=== PATIENT | male | born 1990 ===

== ENCOUNTER 2018-07-09 08:03 | Emergency (ER) | payer SELFPAY ==
[2018-07-09] MEDS ORDERED: Lidocaine 2% Inj (20ml) INFIL STA (08:29)
[2018-07-09] MEDS ORDERED: Lidocaine 2% MPF (5 ml) Inj ONE (08:32)
--- NOTE | 2018-07-09 09:08 | C.PDOC ---
History Of Present Illness 27-year-old male, presents to the emergency department with complaints of an abscess to the right buttock x4 months. Patient states he is visiting from [place] and is planning to return in a few days. He denies fever, nausea/vomiting. No other complaints at this time. Chief Complaint (Nursing): Abnormal Skin Integrity History Per: Patient History/Exam Limitations: no limitations Past Medical History Reviewed: Historical Data, Nursing Documentation, Vital Signs Vital Signs: Last Vital Signs Temp 98 F 07/09/18 08:06 Pulse 112 H 07/09/18 08:06 Resp 20 07/09/18 08:06 BP 103/73 07/09/18 08:06 Pulse Ox 96 07/09/18 08:06 Family History: States: No Known Family Hx - Social History Hx Alcohol Use: Yes Hx Substance Use: No - Immunization History Hx Tetanus Toxoid Vaccination: No Hx Influenza Vaccination: No Hx Pneumococcal Vaccination: No Review Of Systems Constitutional: Negative for: Fever Gastrointestinal: Negative for: Nausea, Vomiting Skin: Positive for: Other (abscess) Physical Exam - Physical Exam Appears: Non-toxic, No Acute Distress Skin: Warm, Dry, Other (there is an abscess to upper right buttock) Head: Atraumatic Eye(s): bilateral: Normal Inspection Nose: Normal Oral Mucosa: Moist Lips: Normal Appearing Neck: Normal ROM Chest: Symmetrical Cardiovascular: Rhythm Regular, No Murmur Respiratory: Normal Breath Sounds, No Accessory Muscle Use Extremity: Normal ROM, No Deformity Neurological/Psych: Oriented x3, Normal Speech ED Course And Treatment O2 Sat by Pulse Oximetry: 96 Pulse Ox Interpretation: Normal (RA) - Incision & Drainage Of Abscess Anesthesia: Lidocaine 2% Prep Used: Betadine Procedure: Incised W/Scalpel Blade#: (11), Drained Pus, Irrigated Cavity W/Saline, Probed To Break Up Loculations, Packed W/Gauze, Cultures Obtained And Sent To Lab Disposition - Disposition Disposition: HOME/ ROUTINE Disposition Time: 09:04 Condition: STABLE Additional Instructions: Follow up with your PMD [facility]. Return to ED in 2 days for wound check and packing removal. Return to ED immediately if feel worse. Prescriptions: Sulfamethoxazole/Trimethoprim [Bactrim DS 800 mg-160 mg] 1 tab PO BID #14 tab Cephalexin [cephalexin] 500 mg PO Q6 #28 cap Ibuprofen [Motrin Tab] 600 mg PO Q8 #30 tab Acetaminophen with Codeine [Tylenol with Codeine No. 3 300 mg-30 mg] 1 tab PO Q6 #15 tab Instructions: Abscess Incision and Drainage (DC) Forms: [employer] (German) - Clinical Impression Clinical Impression: Abscess of buttock, right - Scribe Statement The provider has reviewed the documentation as recorded by the Scribe (Michel Marin) All medical record entries made by the Scribe were at my direction and personally dictated by me. I have reviewed the chart and agree that the record accurately reflects my personal performance of the history, physical exam, medical decision making, and the department course for this patient. I have also personally directed, reviewed, and agree with the discharge instructions and disposition.
[2018-07-09] MEDS ORDERED: Tmp-Smz 800 mg-160 mg DS Tab PO STA (09:13)
[2018-07-09] MEDS ORDERED: Tmp-Smz 800 mg-160 mg DS Tab PO SCH (09:15)
[2018-07-09] MEDS ORDERED: Tmp-Smz 800 mg-160 mg DS Tab ONE (09:17)
[2018-07-09 09:27] VITALS: BP 125/73; PULSE 86; RESP 18; TEMP 98.8
[2018-07-09 12:24] VITALS: O2SAT 96
== END 2018-07-09 10:10 | disposition home or self-care (01) ==
LOC: C.ER 08:03
DX: L02.31 Cutaneous abscess of buttock (principal)